=== PATIENT | female | born 1955 | race Caucasian/White ===

== ENCOUNTER 2016-05-12 13:56 | Outpatient (CLI) | payer MEDICAID | END 2016-05-12 13:57 | disposition home or self-care (01) | DX: B18.2 Chronic viral hepatitis C (principal) ==

== ENCOUNTER 2016-05-28 13:50 | Emergency (ER) | payer MEDICAID ==
[2016-05-28] MEDS ORDERED: oxyCOD/ACETAMIN 5 MG/325 MG TABLET PO STA (14:51)
[2016-05-28] MEDS ORDERED: VANCOMYCIN INJ 2 GM in SODIUM CHLORIDE 0.9% 500 ML IV STA (14:51)
[2016-05-28] MEDS ORDERED: oxyCOD/ACETAMIN 5 MG/325 MG TABLET PO ONE (14:51)
[2016-05-28] MEDS ORDERED: ONDANSETRON 4 MG/2 ML VIAL IVP STA (14:53)
[2016-05-28] MEDS ORDERED: HYDROmorphone 1 MG/ML SYRINGE IVP STA ×2 (14:53→16:15)
[2016-05-28] MEDS ORDERED: ONDANSETRON 4 MG/2 ML VIAL ONE (14:55)
[2016-05-28] MEDS ORDERED: HYDROmorphone 1 MG/ML SYRINGE ONE ×2 (14:55→16:18)
[2016-05-28] MEDS ORDERED: IOPAMIDOL-300 100 ML VIAL IVP ONE (16:01)
[2016-05-28] MEDS ORDERED: LIDOCAINE 2% URO-JET 5 ML SYRINGE UR STA (16:17)
[2016-05-28] MEDS ORDERED: LIDOCAINE 2% URO-JET 5 ML SYRINGE UR ONE (16:18)
== END 2016-05-28 18:26 | disposition home or self-care (01) ==
DX: J34.0 Abscess, furuncle and carbuncle of nose (principal); E11.9 Type 2 diabetes mellitus without complications; Z79.84 Long term (current) use of oral hypoglycemic drugs; I10 Essential (primary) hypertension; K75.9 Inflammatory liver disease, unspecified; M19.90 Unspecified osteoarthritis, unspecified site; M79.7 Fibromyalgia
CPT/HCPCS: 36415; 70487; 80053; 83690; 85025; 87070; 87077; 87181; 87205; 96365; 96375; 96376; 99284; J1170; J3370; Q9967

== ENCOUNTER 2016-08-18 08:00 | Outpatient (CLI) | payer MEDICAID | END 2016-08-18 08:01 | disposition home or self-care (01) | LOC: LAB.R 08:00 | PROVIDERS: ATTEND Physician Assistant | DX: A49.02 Methicillin resistant Staphylococcus aureus infection, unspecified site (principal) | CPT/HCPCS: 87070; 87077; 87205 ==

== ENCOUNTER 2016-10-17 18:43 | Emergency (ER) | payer MEDICAID ==
[2016-10-17 19:20] VITALS: BP 120/77
--- NOTE | 2016-10-17 21:15 | ED Physician Documentation ---
History of Present Illness - Stated complaint Stated Complaint: FINGER INFECTION - Chief complaint Chief Complaint: Ext Problem - History obtained from History obtained from: Patient - History of Present Illness Timing: How many weeks ago (1) Worsened by: palpation - Additonal information Additional information: c/o one week of gradual onset, gradually worsening swelling, redness, and pain right fourth digit. 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 HEENT: Tonsil/Adenoidectomy - Present Medications Home Medications: Ambulatory Orders Medication Instructions Recorded Confirmed Fluoxetine HCl [Prozac] 60 mg PO DAILY 05/24/13 10/17/16 Metformin HCl [Metformin HCl ER] 500 mg PO BIDWM 05/24/13 10/17/16 Omeprazole [Prilosec] 20 mg PO DAILY 05/24/13 10/17/16 Propranolol HCl 20 mg PO BID 05/24/13 10/17/16 QUEtiapine [SEROquel] 800 mg PO QPM 05/24/13 10/17/16 Solifenacin Succinate [Vesicare] 10 mg PO DAILY 05/24/13 10/17/16 Glyburide 2.5 mg PO DAILYWM 10/28/13 10/17/16 Lisinopril 10 mg PO DAILY 10/28/13 10/17/16 Clindamycin HCl 300 mg PO Q6HR 7 Days 10/17/16 - Allergies Allergies/Adverse Reactions: Allergies Allergy/AdvReac Type Severity Reaction Status Date / Time codeine Allergy Nausea Verified 10/17/16 19:20 morphine Allergy Nausea Verified 10/17/16 19:20 Tetanus Vaccines and Toxoid Allergy Unknown Verified 10/17/16 19:20 [Tetanus Vaccines & Toxoid] - Social History Does the pt smoke?: No Smoking Status: Never smoker Does the pt drink ETOH?: No Does the pt have substance abuse?: No - Immunizations Immunizations are current?: Yes - POLST Patient has POLST: No PD ED PE NORMAL - Vitals Vital signs reviewed: Yes - General General: Alert and oriented X 3, No acute distress, Well developed/nourished PD ED PE EXPANDED - Extremities YULIET UE/Hands Visual: 1 - rash (erythema), swelling (swelling, erythema, TTP without fluctuance or discharge.), tenderness Results - Vitals Vitals: Vital Signs - 24 hr 10/17/16 19:17 Temperature 36.5 C Heart Rate 75 Respiratory 18 Rate Blood Pressure 120/77 O2 Saturation 97 Oxygen O2 Source Room air PD MEDICAL DECISION MAKING - ED course Complexity details: considered differential, d/w patient Departure - Departure Disposition: 01 Home, Self Care Clinical Impression: Paronychia Condition: Good Instructions: ED Fingernail Infec Follow-Up: Karina Clay ARNP [Primary Care Provider] - (3-4 days for recheck) Prescriptions: Clindamycin HCl 300 mg PO Q6HR 7 Days Discharge Date/Time: 10/17/16 21:14
[2016-10-17] MEDS ORDERED: CLINDAMYCIN 150 MG CAPSULE PO STA (21:26)
[2016-10-17] MEDS ORDERED: CLINDAMYCIN 150 MG CAPSULE PO ONE (21:28)
== END 2016-10-17 21:14 | disposition home or self-care (01) ==
LOC: ED 18:43
DX: L03.011 Cellulitis of right finger (principal); I10 Essential (primary) hypertension; E11.9 Type 2 diabetes mellitus without complications; Z79.84 Long term (current) use of oral hypoglycemic drugs; K75.9 Inflammatory liver disease, unspecified; M79.7 Fibromyalgia; M19.90 Unspecified osteoarthritis, unspecified site
CPT/HCPCS: 99282; 99283; A9270

== ENCOUNTER 2016-11-15 14:42 | Outpatient (CLI) | payer MEDICAID ==
--- NOTE | 2016-11-15 20:08 | XRAY Report ---
THREE VIEW RIGHT FOOT: 11/15/2016 CLINICAL INDICATION: Pain. AP, lateral, oblique views of the right foot demonstrate osteoarthritis of the interphalangeal joints and first metatarsophalangeal joint. There is no evidence of acute fracture or dislocation. No rad iopaque foreign body is seen in the soft tissues. IMPRESSION: OSTEOARTHRITIS. JOB #: [id number] EXT JOB #:[id number]
== END 2016-11-15 14:43 | disposition home or self-care (01) ==
LOC: DI 14:42
PROVIDERS: ATTEND Orthopaedic Surgery
DX: M19.071 Primary osteoarthritis, right ankle and foot (principal)

== ENCOUNTER 2017-05-16 18:35 | Outpatient (CLI) | payer MEDICAID | END 2017-05-16 18:36 | disposition critical access hospital (66) | LOC: EMS 18:35 | PROVIDERS: ATTEND Surgery | DX: R30.9 Painful micturition, unspecified (principal); R35.0 Frequency of micturition; R51 Headache | CPT/HCPCS: A0425; A0429 ==

== ENCOUNTER 2017-05-16 18:55 | Emergency (ER) | payer MEDICAID ==
[2017-05-16 19:43] LABS: BILIRUBIN,URINE NEGATIVE (NEGATIVE); GLUCOSE, URINE (UA) >=1000 mg/dL (NEGATIVE); KETONES,URINE (UA) TRACE mg/dL (NEGATIVE); LEUKOCYTE ESTERASE, URINE MODERATE (NEGATIVE); NITRITE,URINE POSITIVE (NEGATIVE); OCCULT BLOOD,URINE SMALL (NEGATIVE); PROTEIN,URINE TRACE mg/dL (NEGATIVE); UROBILINOGEN,URINE 1 (NORMAL) E.U./dL (NORMAL)
[2017-05-16 19:52] LABS: CLARITY,URINE CLOUDY (CLEAR)
[2017-05-16 19:53] LABS: BACTERIA,URINE Many /HPF (None Seen); RBC,URINE TNTC /HPF (0-5); SQUAMOUS EPITHELIAL CELL,UR FEW Squamous (<= Few)
--- NOTE | 2017-05-16 20:54 | ED Physician Documentation ---
History of Present Illness - Stated complaint Stated Complaint: UTI LIKE SYMPTOMS, ACOSTA - Chief complaint Chief Complaint: General - History obtained from History obtained from: Patient - History of Present Illness Timing: How many days ago (3-4 days) Pain level now: 8 (headache) Improved by: no ameliorating factors Worsened by: po intake exacerbates n/v - Additonal information Additional information: c/o few days of urinary frequency, burning dysuria, nausea, vomiting, generalized headache. she has had similar headaches before Review of Systems Constitutional: reports: Reviewed and negative Cardiac: reports: Reviewed and negative Respiratory: reports: Reviewed and negative GI: reports: Nausea, Vomiting. denies: Abdominal Pain, Diarrhea : reports: Dysuria, Frequency Neurologic: reports: Headache. 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 HEENT: Tonsil/Adenoidectomy - Present Medications Home Medications: Ambulatory Orders Medication Instructions Recorded Confirmed Fluoxetine HCl [Prozac] 60 mg PO DAILY 05/24/13 10/17/16 Metformin HCl [Metformin HCl ER] 500 mg PO BIDWM 05/24/13 10/17/16 Omeprazole [Prilosec] 20 mg PO DAILY 05/24/13 10/17/16 Propranolol HCl 20 mg PO BID 05/24/13 10/17/16 QUEtiapine [SEROquel] 800 mg PO QPM 05/24/13 10/17/16 Solifenacin Succinate [Vesicare] 10 mg PO DAILY 05/24/13 10/17/16 Glyburide 2.5 mg PO DAILYWM 10/28/13 10/17/16 Lisinopril 10 mg PO DAILY 10/28/13 10/17/16 Clindamycin HCl [Clindamycin 300MG 300 mg PO Q6HR 7 Days capsule 10/17/16 CAP] Nitrofurantoin [Macrobid] 100 mg PO BID #14 capsule 05/16/17 Ondansetron Odt [Zofran] 4 mg TL Q6H PRN #10 tablet 05/16/17 - Allergies Allergies/Adverse Reactions: Allergies Allergy/AdvReac Type Severity Reaction Status Date / Time codeine Allergy Nausea Verified 10/17/16 19:20 morphine Allergy Nausea Verified 10/17/16 19:20 Tetanus Vaccines and Toxoid Allergy Unknown Verified 10/17/16 19:20 [Tetanus Vaccines & Toxoid] - Social History Does the pt smoke?: No Smoking Status: Never smoker Does the pt drink ETOH?: No Does the pt have substance abuse?: No - Immunizations Immunizations are current?: Yes - POLST Patient has POLST: No PD ED PE NORMAL - Vitals Vital signs reviewed: Yes - General General: Alert and oriented X 3, Well developed/nourished, Other (appears uncomfortable but not in obvious painful distress) - HEENT HEENT: PERRL, EOMI, Other (tacky mucous membranes) - Neck Neck: Supple, no meningeal sign - Cardiac Cardiac: RRR, No murmur - Respiratory Respiratory: No respiratory distress - Abdomen Abdomen: Soft, Non tender, Non distended - Back Back: No CVA TTP - Derm Derm: Normal color, Warm and dry - Extremities Extremities: No edema Results - Vitals Vitals: Oxygen O2 Source Room air - Labs Labs: Microbiology 05/16/17 19:30 Urine Culture - Final Urine,Clean Catch Escherichia Coli Laboratory Tests 05/16/17 05/16/17 05/16/17 19:30 21:36 21:36 WBC 5.6 RBC 4.03 L Hgb 12.4 Hct 37.3 MCV 92.6 MCH 30.8 MCHC 33.3 RDW 15.1 H Plt Count 93 L MPV 8.6 Neut # 4.0 Lymph # 0.6 L [place] # 0.9 Eos # 0.0 Baso # 0.0 Absolute Nucleated RBC 0.01 Nucleated RBC % 0.1 Sodium 129 L Potassium 3.8 Chloride 96 L Carbon Dioxide 20 L Anion Gap 13.0 BUN 11 Creatinine 0.6 Estimated GFR (MDRD) 102 Glucose 266 H Calcium 9.2 Urine Color ORANGE Urine Clarity CLOUDY Urine pH 6.0 Ur Specific [place] 1.010 Urine Protein TRACE Urine Glucose (UA) >=1000 H Urine Ketones TRACE Urine Occult Blood SMALL H Urine Nitrite POSITIVE H Urine Bilirubin NEGATIVE Urine Urobilinogen 1 (NORMAL) Ur Leukocyte Esterase MODERATE H Urine RBC TNTC H Urine WBC >25 H Ur Squamous Epith Cells FEW Squamous Urine Bacteria Many H Ur Microscopic Review INDICATED Urine Culture Comments INDICATED PD MEDICAL DECISION MAKING - ED course Complexity details: reviewed old records, reviewed results, re-evaluated patient , considered differential, d/w patient ED course: multiple c/o. possibly viral gastritis causing vomiting, subsequent dehydration causing headaches and then developed uti (based on chronology of her HPI). she says she cannot keep anything down all day and thus IV started, given fluids and zofran. I offered toradol for her headache and she says that never works for her headaches. offered morphine but she states she is allergic. she then asks specifically for dilaudid. she does not have a concerning pattern or frequency of ED visits (noticeably infrequent, actually) and she appears uncomfortable and thus given dilaudid IV. abx given for UTI and prior to discharge, she appeared well hydrated, comfortable, and reported resolution of her nausea Departure - Departure Disposition: 01 Home, Self Care Clinical Impression: Urinary tract infection Qualifiers: Urinary tract infection type: acute cystitis Hematuria presence: with hematuria Qualified Code(s): N30.01 - Acute cystitis with hematuria Vomiting Qualifiers: Vomiting type: unspecified Vomiting Intractability: non-intractable Nausea presence: with nausea Qualified Code(s): R11.2 - Nausea with vomiting, unspecified Headache Qualifiers: Headache type: unspecified Headache chronicity pattern: acute headache Intractability: not intractable Qualified Code(s): R51 - Headache Condition: Good Instructions: ED Cephalgia Unspecified, ED UTI Cystitis Female, ED Nausea Vomiting Follow-Up: Karina Clay, [employer]ISH[employer] [Primary Care Provider] - (3-5 days if symptoms have not improved significantly) Prescriptions: Nitrofurantoin [Macrobid] 100 mg PO BID #14 capsule Ondansetron Odt [Zofran] 4 mg TL Q6H PRN #10 tablet PRN Reason: Nausea / Vomiting Discharge Date/Time: 05/16/17 23:49
[2017-05-16] MEDS ORDERED: ONDANSETRON 4 MG/2 ML VIAL IVP STA (21:20)
[2017-05-16] MEDS ORDERED: SODIUM CHLORIDE 0.9% 1,000 ML IV STA (21:20)
[2017-05-16] MEDS ORDERED: HYDROmorphone 1 MG/ML SYRINGE IVP STA (21:20)
[2017-05-16 21:46] LABS: BASOPHILS % (AUTO) 0.3 %; EOSINOPHILS % (AUTO) 0.8 %; HGB - HEMOGLOBIN 12.4 g/dL (12.0-16.0); LYMPHOCYTES # (AUTO) 0.6 10^3/uL (1.5-3.5); LYMPHOCYTES % (AUTO) 10.7 %; MEAN CORPUSCULAR HEMOGLOBIN 30.8 pg (27.0-31.0); MEAN CORPUSCULAR HGB CONC 33.3 g/dL (32.0-36.0); MEAN CORPUSCULAR VOLUME 92.6 fL (81.0-99.0); MEAN PLATELET VOLUME 8.6 fL (7.9-10.8); MONOCYTES # (AUTO) 0.9 10^3/uL (0.0-1.0); MONOCYTES % (AUTO) 15.7 %; NEUTROPHILS % (AUTO) 72.5 %; PLT - PLATELET COUNT 93 10^3/uL (130-450); RED BLOOD COUNT 4.03 10^6/uL (4.20-5.40); RED CELL DISTRIBUTION WIDTH 15.1 % (12.0-15.0); WHITE BLOOD COUNT 5.6 x10^3/uL (4.8-10.8)
[2017-05-16 21:53] LABS: CALCIUM 9.2 mg/dL (8.5-10.3); CREATININE 0.6 mg/dL (0.4-1.0)
[2017-05-16] MEDS ORDERED: cefTRIAXone 1 GM in SODIUM CHLORIDE 0.9% MINIBAG 100 ML IV STA (22:06)
[2017-05-16 22:47] VITALS: BP 107/58
[2017-05-16] MEDS ORDERED: oxyCOD/ACETAMIN 5 MG/325 MG TABLET PO STA (23:33)
[2017-05-16] MEDS ORDERED: ONDANSETRON ODT 4 MG TABLET TL STA (23:33)
--- NOTE | 2017-05-17 15:45 | ED Physician Documentation ---
ED Addendum - Addendum Addendum: 05/17/17 15:44 pharmacy called - zofran interacts with seroquel - so advised pharmacy just to fill the antibiotic and not the zofran
== END 2017-05-16 23:49 | disposition home or self-care (01) ==
LOC: EDUNIT# → ED 18:55
DX: N30.01 Acute cystitis with hematuria (principal); R11.2 Nausea with vomiting, unspecified; R51 Headache; I10 Essential (primary) hypertension; E11.9 Type 2 diabetes mellitus without complications; Z79.84 Long term (current) use of oral hypoglycemic drugs
CPT/HCPCS: 36415; 80048; 81001; 85025; 87086; 87181; 96361; 96365; 96375; 99284; A9270; J1170; Q0162; 81003

== ENCOUNTER 2017-07-26 15:14 | Outpatient (CLI) | payer MEDICAID ==
[2017-07-26 19:35] LABS: BASOPHILS % (AUTO) 0.9 %; EOSINOPHILS # (AUTO) 0.2 10^3/uL (0.0-0.7); EOSINOPHILS % (AUTO) 3.9 %; HGB - HEMOGLOBIN 12.7 g/dL (12.0-16.0); LYMPHOCYTES # (AUTO) 1.3 10^3/uL (1.5-3.5); LYMPHOCYTES % (AUTO) 32.2 %; MEAN CORPUSCULAR HEMOGLOBIN 30.3 pg (27.0-31.0); MEAN CORPUSCULAR HGB CONC 32.9 g/dL (32.0-36.0); MONOCYTES # (AUTO) 0.4 10^3/uL (0.0-1.0); MONOCYTES % (AUTO) 9.2 %; NEUTROPHILS # (AUTO) 2.1 10^3/uL (1.5-6.6); NEUTROPHILS % (AUTO) 53.8 %; PLT - PLATELET COUNT 131 10^3/uL (130-450); RED BLOOD COUNT 4.19 10^6/uL (4.20-5.40); RED CELL DISTRIBUTION WIDTH 15.5 % (12.0-15.0)
[2017-07-26 19:52] LABS: ALBUMIN/GLOBULIN RATIO 1.1 (1.0-2.2); ALKALINE PHOSPHATASE 65 IU/L (42-121); ALT ALANINE AMINOTRANSFERASE 22 IU/L (10-60); AST ASPARTATE AMINOTRANSFERASE 33 IU/L (10-42); BUN - BLOOD UREA NITROGEN 9 mg/dL (6-20); CALCIUM 9.4 mg/dL (8.5-10.3); CARBON DIOXIDE - CO2 24 mmol/L (21-32); CHLORIDE 102 mmol/L (101-111); CHOL/HDL RATIO 4.4 (<4.4); CHOLESTEROL 149 mg/dL; CREATININE 0.6 mg/dL (0.4-1.0); GFR - MDRD 102 (>89); GLUCOSE 169 mg/dL (70-100); HDL CHOLESTEROL 34 mg/dL; LDL CHOLESTEROL,CALCULATED 87 mg/dL; LDL/HDL RATIO 2.6 (<4.4); SODIUM 133 mmol/L (135-145); TOTAL PROTEIN 7.5 g/dL (6.7-8.2); VLDL CHOLESTEROL 28 mg/dL
[2017-07-26 20:09] LABS: HEMOGLOBIN A1C 0.74 g/dL
== END 2017-07-26 15:15 | disposition home or self-care (01) ==
LOC: LAB.N 15:14
PROVIDERS: ATTEND Nurse Practitioner Gerontology
DX: E87.1 Hypo-osmolality and hyponatremia (principal); E11.9 Type 2 diabetes mellitus without complications; B18.2 Chronic viral hepatitis C; N39.0 Urinary tract infection, site not specified
CPT/HCPCS: 36415; 80050; 80061; 83036; 83721

== ENCOUNTER 2019-05-17 08:00 | Outpatient (CLI) | payer MEDICAID ==
[2019-05-17 18:49] LABS: BASOPHILS % (AUTO) 0.8 %; EOSINOPHILS # (AUTO) 0.2 10^3/uL (0.0-0.7); EOSINOPHILS % (AUTO) 3.9 %; HGB - HEMOGLOBIN 13.8 g/dL (12.0-16.0); LYMPHOCYTES % (AUTO) 27.1 %; MEAN CORPUSCULAR HEMOGLOBIN 31.9 pg (27.0-31.0); MEAN CORPUSCULAR HGB CONC 33.2 g/dL (32.0-36.0); MEAN CORPUSCULAR VOLUME 96.1 fL (81.0-99.0); MEAN PLATELET VOLUME 11.1 fL (7.9-10.8); MONOCYTES # (AUTO) 0.5 10^3/uL (0.0-1.0); MONOCYTES % (AUTO) 12.2 %; NEUTROPHILS # (AUTO) 2.1 10^3/uL (1.5-6.6); NEUTROPHILS % (AUTO) 55.7 %; PLT - PLATELET COUNT 129 10^3/uL (130-450); RED BLOOD COUNT 4.33 10^6/uL (4.20-5.40); WHITE BLOOD COUNT 3.8 x10^3/uL (4.8-10.8)
[2019-05-17 19:22] LABS: CALCIUM 9.2 mg/dL (8.5-10.3); CREATININE 0.6 mg/dL (0.4-1.0)
== END 2019-05-17 23:59 | disposition home or self-care (01) ==
LOC: LAB.N 08:00
PROVIDERS: ATTEND Physician Assistant Medical
DX: R19.06 Epigastric swelling, mass or lump (principal)
CPT/HCPCS: 36415; 80048; 85025

== ENCOUNTER 2019-06-07 07:00 | Outpatient (CLI) | payer MEDICAID | END 2019-06-07 23:59 | disposition home or self-care (01) | LOC: LAB.R 07:00 | PROVIDERS: ATTEND Family Medicine | DX: R39.9 Unspecified symptoms and signs involving the genitourinary system (principal) | CPT/HCPCS: 87077; 87086; 87181 ==

== ENCOUNTER 2019-06-19 07:00 | Outpatient (CLI) | payer MEDICAID ==
[2019-06-19 18:00] LABS: BILIRUBIN,URINE NEGATIVE (NEGATIVE); GLUCOSE, URINE (UA) >=1000 mg/dL (NEGATIVE); KETONES,URINE (UA) NEGATIVE (NEGATIVE); LEUKOCYTE ESTERASE, URINE TRACE (NEGATIVE); NITRITE,URINE NEGATIVE (NEGATIVE); OCCULT BLOOD,URINE NEGATIVE (NEGATIVE); PROTEIN,URINE NEGATIVE (NEGATIVE); UROBILINOGEN,URINE 0.2 (NORMAL) E.U./dL (NORMAL)
[2019-06-19 18:29] LABS: CLARITY,URINE CLEAR (CLEAR)
[2019-06-19 18:31] LABS: BACTERIA,URINE Few /HPF (None Seen); RBC,URINE 0-5 /HPF (0-5); SQUAMOUS EPITHELIAL CELL,UR MANY Squamous (<= Few)
== END 2019-06-19 23:59 | disposition home or self-care (01) ==
LOC: LAB.R 07:00
PROVIDERS: ATTEND Physician Assistant Medical
DX: R39.9 Unspecified symptoms and signs involving the genitourinary system (principal)
CPT/HCPCS: 81001; 81003; 87086

== ENCOUNTER 2019-06-28 08:00 | Outpatient (CLI) | payer MEDICAID ==
[2019-06-28 16:44] LABS: BASOPHILS # (AUTO) 0.1 10^3/uL (0.0-0.1); EOSINOPHILS # (AUTO) 0.2 10^3/uL (0.0-0.7); EOSINOPHILS % (AUTO) 4.7 %; LYMPHOCYTES # (AUTO) 1.5 10^3/uL (1.5-3.5); LYMPHOCYTES % (AUTO) 29.3 %; MEAN CORPUSCULAR HEMOGLOBIN 31.6 pg (27.0-31.0); MEAN CORPUSCULAR HGB CONC 32.7 g/dL (32.0-36.0); MEAN CORPUSCULAR VOLUME 96.6 fL (81.0-99.0); MEAN PLATELET VOLUME 11.5 fL (7.9-10.8); MONOCYTES # (AUTO) 0.6 10^3/uL (0.0-1.0); MONOCYTES % (AUTO) 10.7 %; NEUTROPHILS # (AUTO) 2.8 10^3/uL (1.5-6.6); NEUTROPHILS % (AUTO) 53.9 %; PLT - PLATELET COUNT 143 10^3/uL (130-450); RED BLOOD COUNT 4.43 10^6/uL (4.20-5.40); RED CELL DISTRIBUTION WIDTH 14.1 % (12.0-15.0); WHITE BLOOD COUNT 5.1 x10^3/uL (4.8-10.8)
[2019-06-28 16:51] LABS: BILIRUBIN,URINE NEGATIVE (NEGATIVE); GLUCOSE, URINE (UA) NEGATIVE (NEGATIVE); KETONES,URINE (UA) NEGATIVE (NEGATIVE); LEUKOCYTE ESTERASE, URINE SMALL (NEGATIVE); NITRITE,URINE NEGATIVE (NEGATIVE); OCCULT BLOOD,URINE MODERATE (NEGATIVE); PROTEIN,URINE NEGATIVE (NEGATIVE); UROBILINOGEN,URINE 0.2 (NORMAL) E.U./dL (NORMAL)
[2019-06-28 17:00] LABS: HB2 TOTAL 13.9 g/dL; HEMOGLOBIN A1C 0.99 g/dL; HEMOGLOBIN A1C % 8.7 % (4.6-6.2)
[2019-06-28 17:02] LABS: CREATININE,URINE 91.5 mg/dL; MICROALBUM/CREATININE RATIO,UR 29.5 ug/mg (<30.0); MICROALBUMIN,URINE 2.7 mg/dL (0-300.0)
[2019-06-28 17:04] LABS: ALBUMIN 3.8 g/dL (3.2-5.5); ALKALINE PHOSPHATASE 72 IU/L (42-121); ALT ALANINE AMINOTRANSFERASE 21 IU/L (10-60); AST ASPARTATE AMINOTRANSFERASE 28 IU/L (10-42); BILIRUBIN,TOTAL 1.5 mg/dL (0.2-1.0); BUN - BLOOD UREA NITROGEN 11 mg/dL (6-20); CALCIUM 9.4 mg/dL (8.5-10.3); CARBON DIOXIDE - CO2 23 mmol/L (21-32); CHLORIDE 101 mmol/L (101-111); CHOL/HDL RATIO 4.3 (<4.4); CHOLESTEROL 156 mg/dL; CREATININE 0.7 mg/dL (0.4-1.0); GLUCOSE 211 mg/dL (70-100); HDL CHOLESTEROL 36 mg/dL; LDL CHOLESTEROL,CALCULATED 97 mg/dL; LDL/HDL RATIO 2.7 (<4.4); SODIUM 134 mmol/L (135-145); TOTAL PROTEIN 7.7 g/dL (6.7-8.2); VLDL CHOLESTEROL 23 mg/dL
[2019-06-28 17:27] LABS: BACTERIA,URINE Rare /HPF (None Seen); CASTS, URINE 3-5 Hyaline Casts /LPF; CLARITY,URINE CLEAR (CLEAR); RBC,URINE 0-5 /HPF (0-5); SQUAMOUS EPITHELIAL CELL,UR MOD Squamous (<= Few)
== END 2019-06-28 23:59 | disposition home or self-care (01) ==
LOC: LAB.WCP 08:00
PROVIDERS: ATTEND Physician Assistant Medical
DX: E66.9 Obesity, unspecified (principal); E11.9 Type 2 diabetes mellitus without complications; N30.90 Cystitis, unspecified without hematuria; R39.9 Unspecified symptoms and signs involving the genitourinary system
CPT/HCPCS: 36415; 80050; 80061; 81001; 82043; 82570; 83036; 83721; 87086

== ENCOUNTER 2020-01-10 08:00 | Outpatient (CLI) | payer MEDICAID | END 2020-01-10 23:59 | disposition home or self-care (01) | LOC: LAB.R 08:00 | PROVIDERS: ATTEND Family Medicine | DX: N30.90 Cystitis, unspecified without hematuria (principal) | CPT/HCPCS: 87086 ==

== ENCOUNTER 2020-01-27 08:00 | Outpatient (CLI) | payer MEDICAID | END 2020-01-27 23:59 | disposition home or self-care (01) | LOC: LAB.R 08:00 | PROVIDERS: ATTEND Nurse Practitioner Family | DX: R39.9 Unspecified symptoms and signs involving the genitourinary system (principal) | CPT/HCPCS: 87086 ==

== ENCOUNTER 2021-12-17 08:00 | Outpatient (CLI) | payer MEDICARE, MEDICAID ==
[2021-12-17 17:44] LABS: BASOPHILS % (AUTO) 0.5 %; EOSINOPHILS # (AUTO) 0.1 10^3/uL (0.0-0.7); EOSINOPHILS % (AUTO) 3.5 %; HCT - HEMATOCRIT 35.7 % (37.0-47.0); HGB - HEMOGLOBIN 10.8 g/dL (12.0-16.0); LYMPHOCYTES # (AUTO) 1.4 10^3/uL (1.5-3.5); LYMPHOCYTES % (AUTO) 38.6 %; MEAN CORPUSCULAR HGB CONC 30.3 g/dL (32.0-36.0); MEAN CORPUSCULAR VOLUME 79.3 fL (81.0-99.0); MEAN PLATELET VOLUME 11.8 fL (7.9-10.8); MONOCYTES # (AUTO) 0.5 10^3/uL (0.0-1.0); NEUTROPHILS # (AUTO) 1.6 10^3/uL (1.5-6.6); NEUTROPHILS % (AUTO) 44.1 %; PLT - PLATELET COUNT 148 10^3/uL (130-450); RED CELL DISTRIBUTION WIDTH 18.2 % (12.0-15.0); WHITE BLOOD COUNT 3.7 x10^3/uL (4.8-10.8)
[2021-12-17 18:05] LABS: ALBUMIN 3.7 g/dL (3.2-5.5); ALBUMIN/GLOBULIN RATIO 1.1 (1.0-2.2); ALKALINE PHOSPHATASE 79 IU/L (42-121); ALT ALANINE AMINOTRANSFERASE 20 IU/L (10-60); AST ASPARTATE AMINOTRANSFERASE 24 IU/L (10-42); BILIRUBIN,TOTAL 1.1 mg/dL (0.2-1.0); BUN - BLOOD UREA NITROGEN 11 mg/dL (6-20); CALCIUM 9.3 mg/dL (8.5-10.3); CARBON DIOXIDE - CO2 26 mmol/L (21-32); CHLORIDE 99 mmol/L (101-111); CHOL/HDL RATIO 4.5 (<4.4); CHOLESTEROL 152 mg/dL; CREATININE 0.5 mg/dL (0.4-1.0); GFR - MDRD 124 (>89); GLUCOSE 366 mg/dL (70-100); HDL CHOLESTEROL 34 mg/dL; LDL CHOLESTEROL,CALCULATED 89 mg/dL; LDL/HDL RATIO 2.6 (<4.4); POTASSIUM 3.9 mmol/L (3.5-5.0); SODIUM 133 mmol/L (135-145); TRIGLYCERIDES 146 mg/dL; VLDL CHOLESTEROL 29 mg/dL
[2021-12-17 18:11] LABS: THYROID STIMULATING HORMONE 2.02 uIU/mL (0.34-5.60)
[2021-12-17 20:53] LABS: ESTIMATED AVERAGE GLUCOSE 260 mg/dL (70-100); HEMOGLOBIN A1c% 10.7 % (4.27-6.07)
== END 2021-12-17 23:59 | disposition home or self-care (01) ==
LOC: LAB.N 08:00
PROVIDERS: ATTEND Nurse Practitioner Family
DX: E11.65 Type 2 diabetes mellitus with hyperglycemia (principal); E66.9 Obesity, unspecified
CPT/HCPCS: 36415; 80053; 80061; 82043; 82570; 83036; 83721; 84443; 85025

== ENCOUNTER 2021-12-17 13:54 | Outpatient (CLI) | payer MEDICARE, MEDICAID | END 2021-12-17 13:55 | disposition home or self-care (01) | LOC: LAB.F 13:54 → LAB.N 13:55 | PROVIDERS: ATTEND Nurse Practitioner Family | DX: Z53.9 Procedure and treatment not carried out, unspecified reason (principal) ==

== ENCOUNTER 2021-12-22 08:00 | Outpatient (CLI) | payer MEDICARE, MEDICAID ==
[2021-12-22 18:54] LABS: CREATININE,URINE 33.4 mg/dL; MICROALBUMIN,URINE < 0.2 mg/dL (0-300.0)
== END 2021-12-22 23:59 | disposition home or self-care (01) ==
LOC: LAB.R 08:00
PROVIDERS: ATTEND Nurse Practitioner Family
DX: E11.65 Type 2 diabetes mellitus with hyperglycemia (principal); E66.9 Obesity, unspecified
CPT/HCPCS: 82043; 82570

== ENCOUNTER 2022-12-12 10:15 | Outpatient (CLI) | payer MEDICARE, MEDICAID ==
[2022-12-12 12:32] LABS: EOSINOPHILS # (AUTO) 0.2 10^3/uL (0.0-0.7); HCT - HEMATOCRIT 38.5 % (37.0-47.0); HGB - HEMOGLOBIN 11.9 g/dL (12.0-16.0); LYMPHOCYTES # (AUTO) 1.6 10^3/uL (1.5-3.5); MEAN CORPUSCULAR HEMOGLOBIN 25.3 pg (27.0-31.0); MEAN CORPUSCULAR HGB CONC 30.9 g/dL (32.0-36.0); MEAN CORPUSCULAR VOLUME 81.9 fL (81.0-99.0); MEAN PLATELET VOLUME 11.3 fL (7.9-10.8); MONOCYTES # (AUTO) 0.5 10^3/uL (0.0-1.0); NEUTROPHILS # (AUTO) 1.9 10^3/uL (1.5-6.6); NEUTROPHILS % (AUTO) 44.8 %; PLT - PLATELET COUNT 152 10^3/uL (130-450); RED CELL DISTRIBUTION WIDTH 17.7 % (12.0-15.0); WHITE BLOOD COUNT 4.2 x10^3/uL (4.8-10.8)
[2022-12-12 12:46] LABS: ALBUMIN/GLOBULIN RATIO 1.2 (1.0-2.2); ALKALINE PHOSPHATASE 83 IU/L (42-121); ALT ALANINE AMINOTRANSFERASE 17 IU/L (10-60); AST ASPARTATE AMINOTRANSFERASE 20 IU/L (10-42); BUN - BLOOD UREA NITROGEN 11 mg/dL (6-20); CALCIUM 9.9 mg/dL (8.5-10.3); CARBON DIOXIDE - CO2 24 mmol/L (21-32); CHLORIDE 98 mmol/L (101-111); CHOL/HDL RATIO 4.5 (<4.4); CHOLESTEROL 157 mg/dL; CREATININE 0.6 mg/dL (0.6-1.3); GFR - MDRD 100 (>89); GLUCOSE 357 mg/dL (74-104); HDL CHOLESTEROL 35 mg/dL; LDL CHOLESTEROL,CALCULATED 85 mg/dL; LDL/HDL RATIO 2.4 (<4.4); POTASSIUM 4.3 mmol/L (3.5-4.5); SODIUM 132 mmol/L (135-145); TOTAL PROTEIN 7.3 g/dL (6.4-8.9); TRIGLYCERIDES 187 mg/dL (48-352); VLDL CHOLESTEROL 37 mg/dL
[2022-12-12 12:57] LABS: BILIRUBIN,URINE NEGATIVE (NEGATIVE); GLUCOSE, URINE (UA) >=1000 mg/dL (NEGATIVE); KETONES,URINE (UA) NEGATIVE (NEGATIVE); LEUKOCYTE ESTERASE, URINE NEGATIVE (NEGATIVE); NITRITE,URINE NEGATIVE (NEGATIVE); OCCULT BLOOD,URINE NEGATIVE (NEGATIVE); PROTEIN,URINE NEGATIVE (NEGATIVE); UROBILINOGEN,URINE 0.2 (NORMAL) E.U./dL (NORMAL)
[2022-12-12 13:03] LABS: THYROID STIMULATING HORMONE 1.69 uIU/mL (0.34-5.60)
[2022-12-12 13:07] LABS: CLARITY,URINE CLEAR (CLEAR)
[2022-12-12 13:10] LABS: BACTERIA,URINE Few /HPF (None Seen); RBC,URINE 0-5 /HPF (0-5); SQUAMOUS EPITHELIAL CELL,UR FEW Squamous (<= Few); WBC,URINE 0-3 /HPF (0-5)
[2022-12-12 14:09] LABS: ESTIMATED AVERAGE GLUCOSE 252 mg/dL (70-100); HEMOGLOBIN A1c% 10.4 % (4.27-6.07)
== END 2022-12-12 10:16 | disposition home or self-care (01) ==
LOC: LAB.N 10:15
PROVIDERS: ATTEND Nurse Practitioner Family
DX: E08.9 Diabetes mellitus due to underlying condition without complications (principal); Z13.220 Encounter for screening for lipoid disorders; R10.9 Unspecified abdominal pain; F33.9 Major depressive disorder, recurrent, unspecified
CPT/HCPCS: 36415; 80053; 80061; 81001; 83036; 83721; 84443; 85025; 87086

== ENCOUNTER 2023-05-21 20:24 | Outpatient (CLI) | payer MEDICARE, MEDICAID | END 2023-05-21 23:59 | disposition critical access hospital (66) | LOC: EMS 20:24 | DX: R51.9 Headache, unspecified (principal); M54.2 Cervicalgia | CPT/HCPCS: A0425; A0429 ==

== ENCOUNTER 2023-05-21 20:47 | Emergency (ER) | payer MEDICARE, MEDICAID ==
--- NOTE | 2023-05-21 21:22 | ED Physician Documentation ---
PD HPI HEADACHE - Stated complaint Stated Complaint: ACOSTA/NECK PX - Chief complaint Chief Complaint: Heent - History obtained from History obtained from: Patient - History of Present Illness Timing - onset: How many days ago (3) Timing - onset during: Rest (3) Timing - duration: Days Timing - details: Gradual onset, Still present Location: Front, Left Quality: Throbbing Associated symptoms: Stiff neck. No: Fever, Nausea, Vomiting, Weakness, Numbness, Syncope, Seizure, Eye pain Improved by: Rest, Dark room, Quiet Worsened by: Light, Noise, Moving Contributing factors: Hypertension. No: Anticoagulated, Possible carbon monoxide, Recent illness, Trauma Similar symptoms before: Has not had sx before Recently seen: Not recently seen - Additional information Additional information: Lisa Valenzuela a 67-year-old female who presents to the emergency department tonight with 3 days of a headache that is throbbing she is having a whooshing sound in her head and she is having pain in her neck as well. She has a history of diabetes poorly controlled gets up about 4 times a night to go to the bathroom. Review of Systems Constitutional: denies: Fever, Chills, Myalgias Eyes: reports: Photophobia. denies: Decreased vision Ears: reports: Ear pain Nose: denies: Rhinorrhea / runny nose, Congestion Throat: denies: Sore throat Cardiac: denies: Chest pain / pressure, Palpitations Respiratory: denies: Dyspnea, Cough GI: denies: Abdominal Pain, Nausea, Vomiting, Constipation, Diarrhea : denies: Dysuria, Frequency Skin: denies: Rash Musculoskeletal: reports: Neck pain. denies: Back pain, Extremity pain Neurologic: reports: Headache. 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 HEENT: Tonsil/Adenoidectomy - Present Medications Home Medications: Ambulatory Orders Medication Instructions Recorded Confirmed Fluoxetine HCl [Prozac] 60 mg PO DAILY 05/24/13 10/17/16 Metformin HCl [Metformin HCl ER] 500 mg PO BIDWM 05/24/13 10/17/16 Omeprazole [Prilosec] 20 mg PO DAILY 05/24/13 10/17/16 Propranolol HCl 20 mg PO BID 05/24/13 10/17/16 QUEtiapine [SEROquel] 800 mg PO QPM 05/24/13 10/17/16 Solifenacin Succinate [Vesicare] 10 mg PO DAILY 05/24/13 10/17/16 Glyburide 2.5 mg PO DAILYWM 10/28/13 10/17/16 Lisinopril 10 mg PO DAILY 10/28/13 10/17/16 Clindamycin HCl [Clindamycin 300MG 300 mg PO Q6HR 7 Days capsule 10/17/16 CAP] Nitrofurantoin [Macrobid] 100 mg PO BID #14 capsule 05/16/17 Ondansetron Odt [Zofran] 4 mg TL Q6H PRN #10 tablet 05/16/17 Cyclobenzaprine [Flexeril] 10 mg PO TID PRN #20 tablet 05/22/23 Oxycodone HCl/Acetaminophen 1 - 2 each PO Q6H PRN #14 tablet 05/22/23 [Percocet 5-325 mg Tablet] - Allergies Allergies/Adverse Reactions: Allergies Allergy/AdvReac Type Severity Reaction Status Date / Time codeine Allergy Nausea Verified 05/21/23 20:54 morphine Allergy Nausea Verified 05/21/23 20:54 Tetanus Vaccines and Toxoid Allergy Unknown Verified 05/21/23 20:54 [Tetanus Vaccines & Toxoid] - Social History Does the pt smoke?: No Smoking Status: Never smoker Does the pt drink ETOH?: No Does the pt have substance abuse?: No - Immunizations Immunizations are current?: Yes - POLST Patient has POLST: No PD ED PE NORMAL - Vitals Vital signs reviewed: Yes (Hypertension mild) - General General: Alert and oriented X 3, No acute distress, Well developed/nourished, Other (Pleasant overweight female appears anxious over her symptoms of headache with whooshing sound in her head) - HEENT HEENT: Atraumatic, PERRL, EOMI, Other (The right TM is centrally erythematous mild distortion of landmarks the left is only with trace erythema along the umbo the pharynx shows dry mucous membranes. 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, No motor deficit, No sensory deficit, Normal speech Eye Opening: Spontaneous Motor: Obeys Commands Verbal: Oriented GCS Score: 15 - Psych Psych: Normal mood, Normal affect Results - Vitals Vitals: Vital Signs - 24 hr 05/21/23 05/21/23 05/22/23 20:54 22:59 00:30 Temperature 36.5 C Heart Rate 82 78 73 Respiratory 16 17 16 Rate Blood Pressure 142/74 H 146/69 H 129/62 O2 Saturation 96 97 94 Oxygen O2 Source Room air - Labs Labs: Laboratory Tests 05/21/23 05/21/23 05/21/23 21:29 21:29 21:35 WBC 3.5 L RBC 4.73 Hgb 11.6 L Hct 38.3 MCV 81.0 MCH 24.5 L MCHC 30.3 L RDW 17.1 H Plt Count 136 MPV 10.3 Neut # (Auto) 1.9 Lymph # (Auto) 1.0 L [place] # (Auto) 0.4 Eos # (Auto) 0.1 Baso # (Auto) 0.0 Absolute Nucleated RBC 0.00 Nucleated RBC % 0.0 Sodium 131 L Potassium 4.4 Chloride 98 L Carbon Dioxide 23 Anion Gap 10.0 BUN 12 Creatinine 0.6 Estimated GFR (MDRD) 100 Glucose 350 H Calcium 9.9 Total Bilirubin 0.8 AST 18 ALT 17 Alkaline Phosphatase 88 Total Protein 6.9 Albumin 3.9 Globulin 3.0 Albumin/Globulin Ratio 1.3 Lipase 29 Urine Color YELLOW Urine Clarity CLEAR Urine pH 6.0 Ur Specific [place] 1.010 Urine Protein NEGATIVE Urine Glucose (UA) >=1000 H Urine Ketones NEGATIVE Urine Occult Blood NEGATIVE Urine Nitrite NEGATIVE Urine Bilirubin NEGATIVE Urine Urobilinogen 0.2 (NORMAL) Ur Leukocyte Esterase NEGATIVE Ur Microscopic Review NOT INDICATED Urine Culture Comments NOT INDICATED Procedures - IVC sono (time) 2123 Bedside IVC sono: IVC measures (cm) (1.31), Dehydration (mild 1 liter deficit) PD Medical Decision Making - ED course Complexity details: reviewed old records, reviewed results, re-evaluated patient, considered differential, d/w patient Reviewed Lab Results: We reviewed a complete blood count showing a white blood cell count depressed at 3.5 a normal hemoglobin hematocrit and platelets she has had depressed white blood cell count on her last 3 draws over the past 2 years her chemistries show a sodium of 131 and a glucose of 350. Remainder of the electrolytes are normal as well as the kidney and liver function. Urinalysis shows glucose in the urine with a specific gravity 1.010.In this patient with headache these laboratory studies do not contribute to a specific diagnosis with the exception of elevated glucose and glucose in the urine. This is consistent with a dehydrating blood sugar and the patient is found to be dehydrated on interrogation of the IVC with POCUS. ED course: Lisa Ricardo presents to the Emergency Department with a headache of 3 days duration that appears to be a result of greater occipital neuritis. She is treated with intravenous Dilaudid and Zofran after failure of Toradol. She has improvement in her pain. I discussed with the patient the difficulty in treating this type of tension headache and provided medication for her use at home. Despite an elevated glucose of 350 and glucose in the urine the patient's level of dehydration was not critical. She did receive a liter of saline to correct her deficit. Departure - Departure Disposition: 01 Home, Self Care Clinical Impression: Tension headache Condition: Stable Instructions: ED Headache Tension Follow-Up: YAMILET MURRY NP [Primary Care Provider] - Prescriptions: Cyclobenzaprine [Flexeril] 10 mg PO TID PRN #20 tablet PRN Reason: Spasms Oxycodone HCl/Acetaminophen [Percocet 5-325 mg Tablet] 1 - 2 each PO Q6H PRN #14 tablet PRN Reason: pain Comments: Lisa, today looks like you have a tension headache and this usually as a result of stress and muscle tension in the neck resulting in a pinch of a nerve coming out of the back of the skull. This can be difficult to treat and usually requires pain medication and muscle relaxant. If this is a continuous problem and injection into the back of the neck can be helpful. I have e-scribed some percocet and flexeril (muscle relaxant) to the [facility] in [place]. Discharge Date/Time: 05/22/23 00:48
[2023-05-21] MEDS: KETOROLAC 30 MG/ML VIAL IVP STA (21:34)
[2023-05-21] MEDS: SODIUM CHLORIDE 0.9% 1,000 ML IV STA (21:34)
[2023-05-21 21:42] LABS: BILIRUBIN,URINE NEGATIVE (NEGATIVE); GLUCOSE, URINE (UA) >=1000 mg/dL (NEGATIVE); KETONES,URINE (UA) NEGATIVE (NEGATIVE); LEUKOCYTE ESTERASE, URINE NEGATIVE (NEGATIVE); NITRITE,URINE NEGATIVE (NEGATIVE); OCCULT BLOOD,URINE NEGATIVE (NEGATIVE); PROTEIN,URINE NEGATIVE (NEGATIVE); UROBILINOGEN,URINE 0.2 (NORMAL) E.U./dL (NORMAL)
[2023-05-21 21:42] LABS: BASOPHILS % (AUTO) 0.9 %; EOSINOPHILS # (AUTO) 0.1 10^3/uL (0.0-0.7); EOSINOPHILS % (AUTO) 3.2 %; HCT - HEMATOCRIT 38.3 % (37.0-47.0); HGB - HEMOGLOBIN 11.6 g/dL (12.0-16.0); LYMPHOCYTES % (AUTO) 29.6 %; MEAN CORPUSCULAR HEMOGLOBIN 24.5 pg (27.0-31.0); MEAN CORPUSCULAR HGB CONC 30.3 g/dL (32.0-36.0); MEAN PLATELET VOLUME 10.3 fL (7.9-10.8); MONOCYTES # (AUTO) 0.4 10^3/uL (0.0-1.0); MONOCYTES % (AUTO) 10.4 %; NEUTROPHILS # (AUTO) 1.9 10^3/uL (1.5-6.6); NEUTROPHILS % (AUTO) 55.6 %; PLT - PLATELET COUNT 136 10^3/uL (130-450); RED BLOOD COUNT 4.73 10^6/uL (4.20-5.40); RED CELL DISTRIBUTION WIDTH 17.1 % (12.0-15.0); WHITE BLOOD COUNT 3.5 x10^3/uL (4.8-10.8)
[2023-05-21 21:44] LABS: CLARITY,URINE CLEAR (CLEAR)
[2023-05-21 22:00] LABS: ALBUMIN 3.9 g/dL (3.2-5.5); ALBUMIN/GLOBULIN RATIO 1.3 (1.0-2.2); BILIRUBIN,TOTAL 0.8 mg/dL (0.2-1.0); CALCIUM 9.9 mg/dL (8.5-10.3); CREATININE 0.6 mg/dL (0.6-1.3); POTASSIUM 4.4 mmol/L (3.5-4.5); TOTAL PROTEIN 6.9 g/dL (6.4-8.9)
--- NOTE | 2023-05-21 22:47 | CT Report ---
PROCEDURE: Head WO INDICATIONS: headache TECHNIQUE: Noncontrast 4.5 mm thick angled axial sections acquired from the foramen magnum to the vertex. For r adiation dose reduction, the following was used: automated exposure control, adjustment of mA and/or kV according to patient size. COMPARISON: None. FINDINGS: Image quality: Excellent. CSF spaces: Basal cisterns are patent. No extra-axial fluid collections. Ventricles are normal in size and shape. Brain: No midline shift. No intracranial masses or hemorrhage. [place]-white matter interface is norm al. Skull and face: Calvarium and visualized facial bones are intact, without suspicious lesions. Sinuses: Visualized sinuses and mastoids are clear. IMPRESSION: No acute intracranial pathology. Reviewed by: Mj Giron MD on 05/21/2023 10:46 PM PST Approved by: Mj Giron MD on 05/21/2023 10:46 PM PST Station ID: [id number]
[2023-05-21] MEDS: ONDANSETRON 4 MG/2 ML VIAL IVP STA (22:55)
[2023-05-21] MEDS: HYDROmorphone 1 MG/ML CARPUJECT IVP STA (23:00)
[2023-05-22] MEDS: HYDROmorphone 1 MG/ML CARPUJECT IVP STA (00:12)
[2023-05-22 00:52] VITALS: BP 129/62; O2SAT 94
== END 2023-05-22 00:48 | disposition home or self-care (01) ==
LOC: EDUNIT# → ED 20:47
DX: G44.209 Tension-type headache, unspecified, not intractable (principal); E86.0 Dehydration; E11.65 Type 2 diabetes mellitus with hyperglycemia; Z79.84 Long term (current) use of oral hypoglycemic drugs
CPT/HCPCS: 36415; 70450; 80053; 81003; 83690; 85025; 96361; 96374; 96375; 96376; 99284; J1170; 81001; 87086